=== PATIENT | male | born 1930 | race Caucasian/White ===

== ENCOUNTER 2017-05-18 09:55 | Outpatient (CLI) | payer OTHER ==
--- NOTE | 2017-05-18 12:38 | RAD ---
RIGHT FOOT THREE VIEWS: INDICATIONS: Chronic pain. History of frostbite. 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 There is a benign appearing exostosis off the media l aspect of the great toe, distal phalanx. There are subchondral cyst like abnormalities over the me dial aspect of the great toe metatarsal head. Lisfranc alignment is preserved. Enthesopathic change is seen off the calcaneus. The soft tissues of the right foot demonstrate mild diffuse edematous ch sabina. No definite radiopaque foreign body is evident. IMPRESSION: 1. No acute osseous abnormality. 2. Scattered forefoot osteoarthrosis. 3. Nonspecific soft tissue swelling of the right foot. POS: [facility]
--- NOTE | 2017-05-18 12:40 | RAD ---
THREE VIEWS OF THE LEFT FOOT: INDICATIONS: History of chronic pain of the left foot with a history of frostbite. FINDINGS: No acute fracture or subluxation is evident. There is mild scattered forefoot osteoarthrosis. There is a benign appearing exostosis involving the medial aspect of the great toe distal phalanx. There is enthesopathic change off the base of the fifth metatarsal and the calcaneus. Lisfranc alignment i s preserved. There is diffuse soft tissue swelling of the foot. IMPRESSION: 1. No acute abnormality. 2. Soft tissue swelling of the foot. 3. Mild scattered forefoot osteoarthrosis. POS: [facility]
== END 2017-05-18 09:56 | disposition home or self-care (01) ==
LOC: MADRAD 09:55
PROVIDERS: ATTEND Orthopaedic Surgery
DX: T33.829A Superficial frostbite of unspecified foot, initial encounter (principal); M79.89 Other specified soft tissue disorders; M19.072 Primary osteoarthritis, left ankle and foot; M19.071 Primary osteoarthritis, right ankle and foot